=== PATIENT | female | born 1995 | race Caucasian/White ===

== ENCOUNTER 2024-01-30 07:47 | Emergency (ER) | payer OTHER, SELFPAY ==
[2024-01-30 07:48] VITALS: BP 173/101
--- NOTE | 2024-01-30 08:46 | ED.GENMED ---
History of Present Illness
General
Chief Complaint: Musculo-Skeletal Complaint
Source: patient
Exam Limitations: none
Time Seen by Provider: 01/30/24 08:31
Nursing documentation reviewed up to this point in time: agreed with
Travel History
Have you had any contact with someone who has COVID-19?: No
Do you have any symptoms of coronavirus? Fever > 100 degrees, chills, cough, shortness of breath, sore throat, loss of taste or smell, muscle aches, or headache?: No
History of Present Illness
History of Present Illness:
28-year-old female with history as documented presents to the emergency room for evaluation of neck pain. Patient reports that she woke up yesterday with pain in the left side of her neck, radiating towards the left shoulder. She says that it felt
like a muscular pain and she thought that it was related to the way that she slept. She says that she used heat and some naproxen yesterday morning and neck felt a bit looser and pain improved however when she woke up this morning pain was
significantly worse she could not even turn her head towards the left due to significant pain. She came to the emergency room for assessment. She denies any trauma or injury. Denies any weakness or numbness in extremities or any other complaints.
Past History
Past History
ED Past Medical History: None; Negative Asthma, HTN, Hypercholesterolemia or NIDDM
ED Past Surgical History: Orthopedic (Left femur) and Other
Social History
Tobacco: Non-smoker
Alcohol: Occasional
Personal:
Living: with family
Employment: Employed
Family History
Family History: Negative Early CAD
Review of Systems
Review of Systems
All Other Systems: ROS reviewed and negative except as documented in HPI and ROS
Constitutional: Denies fever or chills
EENT: Denies sore throat or runny nose
Respiratory: Denies trouble breathing
Cardiac: Denies chest pain
ABD/GI: Denies nausea or vomiting
Musculoskeletal: Reports neck pain; Denies back pain
Neurological: Denies dizzy, headache, weakness or numbness
Phy Exam
Physical Exam
Physical Exam:
General: Awake, alert, oriented x3; no acute distress
Head: Normocephalic, atraumatic
Eyes: Conjunctiva normal, EOMI, pupils equal round and reactive to light bilaterally, no ptosis
Throat: Airway intact, handling secretions
Neck: Trachea midline, no cervical spine tenderness; she has tenderness along the left paraspinal/upper trapezius region; she is able to fully rotate head towards the right without significant pain; able to rotate head towards the left to about 45
degrees before she begins having significant pain
Lungs: Breathing comfortably no distress
Heart: Regular rate
Neuro: Cranial nerves grossly intact, speech fluid; motor and sensory function intact proximally and distally in the upper extremities including lan support specialist strength
Skin: no rash
Extremities: Warm and well-perfused
Scores
Heart Failure Risk
Heart Failure Risk Score: Not Applicable
Heart Score for Chest Pain Patients
STEMI patient?: Not applicable
Withdrawal Assessment of Alcohol
Withdrawal Assessment Completed?: Not applicable
Course
Orders/Labs/Results
Orders:
Orders
01/30/24 08:45
Diazepam [Valium] 2 mg PO NOW STA
Ketorolac [Toradol] 30 mg IM NOW STA
Vital Signs
Initial and Last Documented VS:
Initial Vital Signs
Temp Pulse Resp BP Pulse Ox
37.1 C 84 16 173/101 98
01/30/24 07:48 01/30/24 07:48 01/30/24 07:48 01/30/24 07:48 01/30/24 07:48
Last Documented Vital Signs
Temp Pulse Resp BP Pulse Ox
37.1 C 84 16 173/101 98
01/30/24 07:48 01/30/24 07:48 01/30/24 07:48 01/30/24 07:48 01/30/24 07:48
MDM/Problems Addressed
Differential Diagnosis Includes:
Torticollis, cervical strain, cervical radiculopathy; very low clinical suspicion for fracture with no traumatic mechanism, no midline tenderness
MDM/Problems Addressed:
28-year-old female presents for evaluation of left neck pain and stiffness�initially started yesterday and then woke up this morning with significant stiffness and pain. Hypertensive otherwise normal vitals. Exam as above�exam is consistent with
cervical muscle strain/torticollis. Will plan to treat with Toradol, Valium. Considered x-ray of the neck but with no traumatic mechanism or midline tenderness no indication for emergent imaging of the neck at this point. Reassess after the above.
Patient improved after ED treatment moving neck through good range of motion after Toradol and Valium. Will discharge with instructions for NSAIDs, muscle relaxer as needed, gentle stretching and heat over the next few days. We discussed her blood
pressure likely elevated in setting of stress and pain she will follow-up with her primary doctor for recheck. She says that she just had an appointment a few weeks ago and her blood pressure was normal. We spoke about return precautions and all
questions were answered.
Acute Exacerbation and/or Progression of Chronic Illness:
Acutely hypertensive
Acute Exacerbation and/or Progression of Chronic Illness: HTN
*Pulse Oximetry
Patient hypoxic: no
*Critical Care Note
Total Time (30-74mins, 75-104mins- exclusive of procedures): Not Applicable
Data Reviewed
Source: patient
Further Testing Considered But Not Given:
Considered x-ray of the cervical spine
ED Attending Note
-
Portions of this chart may have been created with voice recognition software.� Occasional wrong word or��sound alike� substitutions may have occurred due to the inherent limitations of voice recognition software.
Discharge Plan
Departure
Patient Disposition: Home (Routine Discharge)
Date of Disposition: 01/30/24
Time of Disposition: 09:45
Patient with high blood pressure during this ER visit?: Yes
Discharge Problem:
Acute torticollis, Hypertension
Instructions: Torticollis, Adult, BLOOD PRESSURE
Prescriptions:
New
ibuprofen 400 mg tablet
400 mg PO Q6H PRN (Reason: Pain) Qty: 30 0RF
diazepam [Valium] 2 mg tablet
2 mg PO BID PRN (Reason: muscle spasm) Qty: 10 0RF
No Action
L norgest/e.estradiol-e.estrad [Seasonique] 1 EACH tablets,dose pack,3 month
1 blister PO DAILY
Activity Restrictions/Additional Instructions:
Thank you for visiting the Emergency Department at [facility].
1. Please schedule a follow up appointment as directed. Call first thing tomorrow morning to make an appointment.
2. If indicated, please take your medications as instructed and indicated on discharge paperwork.
3. If any of your symptoms do not improve, or persist, or become more severe within 6-12 hours, please return to the emergency department for further care.
4. Please return to the emergency department if you develop a headache, neck pain/stiffness, fever greater than 100.4F, chest pain, shortness of breath, persistent nausea, vomiting, slurred speech, difficulty walking, numbness/tingling, weakness,
signs of infection or any other symptoms that are worrisome to you.
Please call [phone] if you have any questions.
Interventions
Interventions:
*ED COVID-19 Vaccine History Last Done: 01/30/24 07:48
[2024-01-30] MEDS: VALIUM 2 MG PO (08:56)
[2024-01-30] MEDS: TORADOL 30 MG IM (08:56)
== END 2024-01-30 10:07 | disposition home or self-care (01) ==
LOC: EMR 07:47
PROVIDERS: EMERGENCY PHYSICIAN Emergency Medicine; FAMILY PHYSICIAN Family Medicine
DX: S16.1XXA Strain of muscle, fascia and tendon at neck level, initial encounter (principal); X58.XXXA Exposure to other specified factors, initial encounter; R03.0 Elevated blood-pressure reading, without diagnosis of hypertension
CPT/HCPCS: 99284; 96372

== ENCOUNTER → 2024-04-29 15:46 | Outpatient (REF) | payer OTHER, SELFPAY ==
[2024-05-06 10:12] LABS: HPV, High Risk Detected; HPV, High Risk Source Anal
== END ==
LOC: CLAB 15:46
PROVIDERS: ATTENDING PHYSICIAN Surgery
DX: K62.9 Disease of anus and rectum, unspecified (principal)
CPT/HCPCS: 87624; 88112

== ENCOUNTER → 2025-03-22 16:40 | Outpatient (REF) | payer SELFPAY ==
[2025-03-27 01:07] LABS: HPV, High Risk Detected; HPV, High Risk Source Anal
== END ==
LOC: CLAB 16:40
PROVIDERS: ATTENDING PHYSICIAN Surgery
DX: Z86.19 Personal history of other infectious and parasitic diseases (principal)
CPT/HCPCS: 87624; 88112

== ENCOUNTER 2025-05-17 01:01 | Emergency (ER) | payer BC, SELFPAY ==
[2025-05-17 01:02] VITALS: BP 165/97
[2025-05-17 03:17] VITALS: BP 137/98
[2025-05-17 03:19] VITALS: BP 137/98
--- NOTE | 2025-05-17 07:17 | ED.GENMED ---
History of Present Illness
General
Chief Complaint: Foreign Body Removal
Source: patient
Exam Limitations: none
Time Seen by Provider: 05/17/25 02:58
Nursing documentation reviewed up to this point in time: agreed with
History of Present Illness
History of Present Illness:
29-year-old female presents to the emergency room for evaluation of fullness in the left ear. Patient says she heard a buzzing in her left ear and thinks there was a bug in it�she said she stuck her finger in it and the buzzing stopped but since
then her ear has felt clogged. Came to the ER for assessment. Denies ear pain or drainage. No other acute complaints.
Past History
Past History
ED Past Medical History: None; Negative Asthma, HTN, Hypercholesterolemia or NIDDM
ED Past Surgical History: Orthopedic (Left femur) and Other
Social History
Tobacco: Non-smoker
Alcohol: Occasional
Personal:
Living: with family
Employment: Employed
Family History
Family History: Negative Early CAD
Review of Systems
Review of Systems
All Other Systems: ROS reviewed and negative except as documented in HPI and ROS
EENT: Reports other (Clogged ear/muffled hearing)
Phy Exam
Physical Exam
Physical Exam:
General: Well appearing and non-toxic
HEENT: protecting airway; right canal and TM clear; patient has been cerumen in the left canal which was irrigated away�no insect or other foreign body noted after clearing cerumen, TM appears normal without perforation, erythema or bulging
Neck: appears supple
CV: No evidence of cyanosis
Resp: No accessory muscle use
Abd: Non-distended
Extremities: No deformities
Neuro: Alert
Psych: Normal affect
Skin: Intact
Scores
Heart Failure Risk
Heart Failure Risk Score: Not Applicable
Heart Score for Chest Pain Patients
STEMI patient?: Not applicable
Withdrawal Assessment of Alcohol
Withdrawal Assessment Completed?: Not applicable
Course
Vital Signs
Initial and Last Documented VS:
Initial Vital Signs
Temp Pulse Resp BP Pulse Ox
37.0 C 86 16 165/97 98
05/17/25 01:02 05/17/25 01:02 05/17/25 01:02 05/17/25 01:02 05/17/25 01:02
Last Documented Vital Signs
Temp Pulse Resp BP Pulse Ox
37.0 C 72 16 137/98 97
05/17/25 01:02 05/17/25 03:19 05/17/25 03:19 05/17/25 03:19 05/17/25 03:19
Procedures
Foreign Body Removal-Ear
Left External canal:
Tenderness: none
Any local drainage: none
External ear canal cleaned with removal of cerumen using: irrigation
MDM/Problems Addressed
Differential Diagnosis Includes:
Cerumen impaction, foreign body/insect
MDM/Problems Addressed:
29-year-old female presents with clogged left ear�she heard a buzzing and thought there was a fly in her ear and so she stuck her finger in the ear and since then it is felt clogged. Vitals and exam as above. She had cerumen in her ear which was
irrigated out. Symptoms resolved thereafter. No insect visualized, TM intact. Stable for discharge.
*Pulse Oximetry
SaO2: 97
Oxygen Mode of Delivery: Room air
Patient hypoxic: no (97%)
*Critical Care Note
Total Time (30-74mins, 75-104mins- exclusive of procedures): Not Applicable
Data Reviewed
Source: patient
ED Attending Note
-
Portions of this chart may have been created with voice recognition software.� Occasional wrong word or��sound alike� substitutions may have occurred due to the inherent limitations of voice recognition software.
Discharge Plan
Departure
Patient Disposition: Home (Routine Discharge)
Date of Disposition: 05/17/25
Time of Disposition: 03:05
Patient with high blood pressure during this ER visit?: Yes
Discharge Problem:
Excessive cerumen in left ear canal
Instructions: Ear Wax Impaction ED
Prescriptions:
No Action
L norgest/e.estradiol-e.estrad [Seasonique] 1 EACH tablets,dose pack,3 month
1 blister PO DAILY
ibuprofen 400 mg tablet
400 mg PO Q6H PRN (Reason: Pain) Qty: 30 0RF
diazepam [Valium] 2 mg tablet
2 mg PO BID PRN (Reason: muscle spasm) Qty: 10 0RF
Referrals:
Kathie Frazier CRNP [Family Provider]
Activity Restrictions/Additional Instructions:
Thank you for visiting the Emergency Department at [facility].
1. Please schedule a follow up appointment as directed. Call first thing tomorrow morning to make an appointment.
2. If indicated, please take your medications as instructed and indicated on discharge paperwork.
3. If any of your symptoms do not improve, or persist, or become more severe within 6-12 hours, please return to the emergency department for further care.
4. Please return to the emergency department if you develop a headache, neck pain/stiffness, fever greater than 100.4F, chest pain, shortness of breath, persistent nausea, vomiting, slurred speech, difficulty walking, numbness/tingling, weakness,
signs of infection or any other symptoms that are worrisome to you.
Please call [phone] if you have any questions.
Interventions
Interventions:
*Risk Screen - Suicide Last Done: 05/17/25 01:02
*General Assessment Last Done: 05/17/25 01:02
*Neglect/Abuse Screening Last Done: 05/17/25 01:02
*ED- Fall Risk Assessment Last Done: 05/17/25 01:02
*ED COVID-19 Vaccine History Last Done: 05/17/25 01:02
*Nursing Disposition Last Done: 05/17/25 03:19
Discharge Date and Time
Discharge Date/Time: 05/17/25 03:15
Print Language: TURKMEN
== END 2025-05-17 03:15 | disposition home or self-care (01) ==
LOC: EMR 01:01
PROVIDERS: EMERGENCY PHYSICIAN Emergency Medicine; FAMILY PHYSICIAN Nurse Practitioner Family
DX: H61.22 Impacted cerumen, left ear (principal); R03.0 Elevated blood-pressure reading, without diagnosis of hypertension
CPT/HCPCS: 99282; 69209

== ENCOUNTER 2025-07-02 07:40 | Emergency (ER) | payer BC, SELFPAY ==
[2025-07-02 07:43] VITALS: BP 181/102
[2025-07-02 09:15] VITALS: BP 146/78; BMI 26.7
--- NOTE | 2025-07-02 09:16 | ED.GENMED ---
History of Present Illness
<Sakina Diaz DO, Resident - Last Filed: 07/02/25 15:11>
General
Chief Complaint: Headache
Source: patient
Exam Limitations: none
Time Seen by Provider: 07/02/25 08:32
Nursing documentation reviewed up to this point in time: agreed with
History of Present Illness
History of Present Illness:
Patient is a 29-year-old female past medical history of hypertension, anxiety, obesity presenting with new onset headache since Saturday. Patient states that the headache feels like a 'balloon in her head' and is associated with 'warmness' that
travels around her head. Patient states that she feels like a bobble head. Patient said the headache is also associated with occasional blurry vision and decreased hearing in her right ear. Patient denies nausea vomiting. Patient rates the pain
a 6 out of 10 on the pain scale. Patient has tried taking Sudafed thinking it might be sinus pressure with no relief. Patient is taking Tylenol with no relief. Of note patient has recently stopped her Lexapro 1 month ago. Patient is currently on
an oral contraceptive and Zepbound 5 mg for the last 5 months, most recent dose increased 6 weeks ago. Patient takes Xanax as needed, ondansetron as needed, and has asthma for which she uses inhaler. Patient has a history of hypertension that is
controlled with weight loss. When first diagnosed patient tried hydrochlorothiazide and losartan and had an allergic reaction including hives or rash.
Past History
<Sakina Diaz DO, Resident - Last Filed: 07/02/25 15:11>
Past History
ED Past Medical History: None; Negative Asthma, HTN, Hypercholesterolemia or NIDDM
ED Past Surgical History: Orthopedic (Left femur) and Other
Social History
Tobacco: Non-smoker
Alcohol: Occasional
Personal:
Living: with family
Employment: Employed
Family History
Family History: Negative Early CAD
Review of Systems
<Sakina Diaz DO, Resident - Last Filed: 07/02/25 15:11>
Review of Systems
Allergies reviewed?: Yes
All Other Systems: ROS reviewed and negative except as documented in HPI and ROS
Constitutional: Reports weight loss (Lost 50 pounds recently on Zepbound for the last 5 months.)
EENT: Reports no symptoms
Respiratory: Reports no symptoms
Cardiac: Reports no symptoms
ABD/GI: Reports no symptoms
: Reports no symptoms
Musculoskeletal: Reports no symptoms
Skin: Reports no symptoms
Neurological: Reports headache (Headache since Saturday, describes it as balloon expanding and pressure)
Endocrine: Reports no symptoms
Hematologic/Lymphatic: Reports no symptoms
Psychiatric: Reports no symptoms
Phy Exam
<Sakina Diaz DO, Resident - Last Filed: 07/02/25 15:11>
General Physical Exam
General Presentation: well appearing and no apparent distress
General age: appears stated age
General Skin: warm and dry
General Habitus: obese
Eye Exam
Eye Exam: PERRL and EOMI
Cardiovascular Exam
Cardiovascular Exam: regular rate/rhythm
Heart Sounds: normal
Pulmonary Exam
Pulmonary Exam: lungs clear, no respiratory distress, no crackles and no wheezing
Gastrointestinal Exam
Gastrointestinal Exam: normal bowel sounds, non tender and soft
Neurological Exam
Neurological Exam: alert and oriented x3
Skin Exam
Skin Exam: normal color and warm/dry
Psychiatric Exam
Psychiatric Exam: normal mood/affect
Course
<Sakina Diaz DO, Resident - Last Filed: 07/02/25 15:11>
Orders/Labs/Results
Orders:
Orders
07/02/25 09:11
CT Head W/o Iv Contrast Urgent
Comment:
Reason For Exam: new headache
07/02/25 09:13
Test Result ONCE
07/02/25 09:14
Cardiac Monitoring- Treatment ONCE
Vital Signs- Treatment ONCE
Frequency: Once
07/02/25 09:53
Basic Metabolic Panel Urgent
Beta Hcg Urine Qualitative Screen [HCG, Urine Qualitative Screen] Stat
Date Specimen was Collected: 07/02/25
Time Specimen was Collected: 09:14
Complete Blood Count/With Diff Urgent
Urinalysis Reflex To Culture Urgent
Date Specimen was Collected: 07/02/25
Time Specimen was Collected: 09:14
Urine Microscopic Reflex Cult Urgent
Urine Culture Urgent
SUDHIR Source: U
Specimen Description:
Date Specimen was Collected: 07/02/25
Time Specimen was Collected: 09:14
07/02/25 10:18
NORepinephrine 4 MG/250 ML [Levophed] 4 mg in 250 ml .ROUTE .STK-MED
07/02/25 10:57
Ketorolac [Toradol] 15 mg IM NOW STA
07/02/25 11:08
Ketorolac [Toradol] 15 mg IM NOW STA
Abnormal Lab Results
07/02/25
09:53
WBC 4.7 L 10^3/uL
(4.8-10.8)
MPV 11.1 H fL
(7.4-10.4)
Glucose 101 H mg/dl
(70-99)
Urine Bacteria (Reflex) Moderate A
(Negative)
Urine Albumin (Reflex) 1+ A
(Neg - Trace)
07/02/25 09:53
07/02/25 09:53
Vital Signs
Initial and Last Documented VS:
Initial Vital Signs
Temp Pulse Resp BP Pulse Ox
98.2 F 88 16 181/102 98
07/02/25 07:43 07/02/25 07:43 07/02/25 07:43 07/02/25 07:43 07/02/25 07:43
Last Documented Vital Signs
Temp Pulse Resp BP Pulse Ox
98.5 F 74 12 146/89 97
07/02/25 09:15 07/02/25 10:45 07/02/25 10:45 07/02/25 10:05 07/02/25 10:45
<Grant Johnson, DO - Last Filed: 07/02/25 12:20>
Orders/Labs/Results
Orders:
Orders
07/02/25 09:11
CT Head W/o Iv Contrast Urgent
Comment:
Reason For Exam: new headache
07/02/25 09:13
Test Result ONCE
07/02/25 09:14
Cardiac Monitoring- Treatment ONCE
Vital Signs- Treatment ONCE
Frequency: Once
07/02/25 09:53
Basic Metabolic Panel Urgent
Beta Hcg Urine Qualitative Screen [HCG, Urine Qualitative Screen] Stat
Date Specimen was Collected: 07/02/25
Time Specimen was Collected: 09:14
Complete Blood Count/With Diff Urgent
Urinalysis Reflex To Culture Urgent
Date Specimen was Collected: 07/02/25
Time Specimen was Collected: 09:14
Urine Microscopic Reflex Cult Urgent
Urine Culture Urgent
SUDHIR Source: U
Specimen Description:
Date Specimen was Collected: 07/02/25
Time Specimen was Collected: 09:14
07/02/25 10:18
NORepinephrine 4 MG/250 ML [Levophed] 4 mg in 250 ml .ROUTE .STK-MED
07/02/25 10:57
Ketorolac [Toradol] 15 mg IM NOW STA
07/02/25 11:08
Ketorolac [Toradol] 15 mg IM NOW STA
Abnormal Lab Results
07/02/25
09:53
WBC 4.7 L 10^3/uL
(4.8-10.8)
MPV 11.1 H fL
(7.4-10.4)
Glucose 101 H mg/dl
(70-99)
Urine Bacteria (Reflex) Moderate A
(Negative)
Urine Albumin (Reflex) 1+ A
(Neg - Trace)
07/02/25 09:53
07/02/25 09:53
Vital Signs
Initial and Last Documented VS:
Initial Vital Signs
Temp Pulse Resp BP Pulse Ox
98.2 F 88 16 181/102 98
07/02/25 07:43 07/02/25 07:43 07/02/25 07:43 07/02/25 07:43 07/02/25 07:43
Last Documented Vital Signs
Temp Pulse Resp BP Pulse Ox
98.5 F 74 12 146/89 97
07/02/25 09:15 07/02/25 10:45 07/02/25 10:45 07/02/25 10:05 07/02/25 10:45
<Sakina Diaz DO, Resident - Last Filed: 07/02/25 15:11>
MDM/Problems Addressed
Differential Diagnosis Includes:
Tension headache
MDM/Problems Addressed:
Will get CT head noncontrast, urinalysis, CBC, BMP. Will repeat blood pressure and treat accordingly.
Repeat blood pressure is 146/89, heart rate 72. Head CT negative. Blood work unremarkable. Headache dissipated with IV toradol 15mg. Will discharge patient.
<Sakina Diaz DO, Resident - Last Filed: 07/02/25 15:11>
*Pulse Oximetry
SaO2: 98
Oxygen Mode of Delivery: Room air
Patient hypoxic: no
*Critical Care Note
Total Time (30-74mins, 75-104mins- exclusive of procedures): Not Applicable
ED Attending Note
<Sakina Diaz DO, Resident - Last Filed: 07/02/25 15:11>
-
Portions of this chart may have been created with voice recognition software.� Occasional wrong word or��sound alike� substitutions may have occurred due to the inherent limitations of voice recognition software.
<Grant Johnson DO - Last Filed: 07/02/25 12:20>
ED Attending Note
Patient seen and examined by attending physician: Yes
I performed a history and physical exam of patient and discussed management with resident, I reviewed resident's note and agree with documented findings and plan of care.: Yes
ED Attending Note:
I have reviewed and agree with history and treatment plan by Sakina Diaz DO. My exam revealed
Physical Exam
General: no apparent distress, not acutely ill
Neck: supple. no meningeal signs. normal posterior pharynx
Heart: s1/s2 regular rate and rhythm, no murmur. equal radial
pulses.
HEENT: Pupils equal round reactive to light, EOMI
Lungs: no acute respiratory distress. clear bilaterally
Abdomen: normal bowel sounds. not tender. no CVAT
Neuro: alert and oriented. no focal neurological deficits cranial nerves II through XII intact
Skin: no rash
Psychiatric: well kept. interactive and cooperative
Extremities: no edema. no calf tenderness. negative homans. good distal pulses
29-year-old female with headache, blood pressure improved with observation, headache dissipated with IM Toradol. Patient stable for discharge. CT head and labs normal. Follow-up with primary care.
Discharge Plan
Departure
Patient Disposition: Home (Routine Discharge)
Date of Disposition: 07/02/25
Time of Disposition: 12:18
Patient with high blood pressure during this ER visit?: Yes
Discharge Problem:
Headache
Instructions: Headache, Adult (DC), BLOOD PRESSURE
Prescriptions:
No Action
L norgest/e.estradiol-e.estrad [Seasonique] 1 EACH tablets,dose pack,3 month
1 blister PO DAILY
ibuprofen 400 mg tablet
400 mg PO Q6H PRN (Reason: Pain) Qty: 30 0RF
Referrals:
Kathie Frazier CRNP [Family Provider]
Activity Restrictions/Additional Instructions:
Please return to the ED if symptoms worsen. Please schedule follow up with your primary care provider.
Interventions
Interventions:
*Risk Screen - Suicide Last Done: 07/02/25 07:43
*General Assessment Last Done: 07/02/25 09:15
*Neglect/Abuse Screening Last Done: 07/02/25 07:43
*ED- Fall Risk Assessment Last Done: 07/02/25 09:15
*ED COVID-19 Vaccine History Last Done: 07/02/25 09:15
*Nursing Disposition Last Done: 07/02/25 12:27
ED- Neurological Assessment Last Done: 07/02/25 09:15
Discharge Date and Time
Discharge Date/Time: 07/02/25 12:28
Print Language: TOGOLESE
[2025-07-02 10:05] VITALS: BP 146/89
[2025-07-02 10:10] LABS: Urine Character Clear (Clear)
[2025-07-02 10:12] LABS: Hematocrit 42.0 % (37.0-47.0); Hemoglobin 14.1 g/dL (12.0-16.0); Mean Corp Hgb Conc. 33.6 g/dL (33.0-37.0); Mean Corpuscular Volume 91.1 fL (81.0-99.0); Nucleated Red Blood Cells % 0 %; Platelet Count 150 10^3/uL (130-400); Red Cell Dist. Width 13.0 % (11.5-14.5)
[2025-07-02 10:22] LABS: Blood Urea Nitrogen 11 mg/dl (7-17); Calcium 8.8 mg/dl (8.4-10.2); Carbon Dioxide 24 mmol/L (22-30); Chloride 107 mmol/L (98-107); Glucose 101 mg/dl (70-99); Potassium 4.3 mmol/L (3.5-5.1); Sodium 139 mmol/L (135-145); eGFR > 60.00
[2025-07-02 10:31] LABS: Urine Red Blood Cell 0-2 /HPF (0-2)
[2025-07-02 10:42] LABS: HCG, Urine Qualitative Screen Negative
--- NOTE | 2025-07-02 10:53 | EDRN ---
a PIV was placed and labs were drawn, per the pt this RN removed the PIV, the pt pressed the call peoples shortly after this RN exited the pts room to send lab work and when this RN entered the pts room the pt stated, 'Oh you need to take this out
right now, i don't like it and my arm is numb now', this RN removed PIV and notified Dr. Johnson, VS WNL, no s/s of distress
--- NOTE | 2025-07-02 11:07 | EDRN ---
Dr. Diaz was at the pts bedside and spoke to the pt regarding ordering IM Toradol, the pt does not want any injectable medications per the pt
[2025-07-02] MEDS: TORADOL 15 MG IM (11:57)
== END 2025-07-02 12:28 | disposition home or self-care (01) ==
LOC: EMR 07:40
PROVIDERS: EMERGENCY PHYSICIAN Emergency Medicine; FAMILY PHYSICIAN Nurse Practitioner Family
DX: R51.9 Headache, unspecified (principal)
CPT/HCPCS: 99284; 96372; 70450; 80048; 81003; 81015; 81025; 85025; 87086